=== PATIENT | male | born 2005 | race Two or more races ===

== ENCOUNTER 2025-04-01 16:45 | Emergency (ER) | payer MEDICAID, SELFPAY ==
[2025-04-01 16:46] VITALS: BMI 22.1
--- NOTE | 2025-04-01 17:39 | PD.EDRME ---
Rapid Medical Screening Exam RME Arrival date/time: 04/01/25 16:45 This is a 19-year-old male that comes in with complaints of fever, nausea, vomiting, diarrhea that started today. Patient also complaining of right sided mid abdominal pain. Patient denies any past medical history. I have greeted and performed a focused initial assessment of this patient. Initial appropriate labs ordered at this time. A comprehensive ED assessment and evaluation of the patient and analysis of all test and completion of medical decision making process will be conducted by additional ED provider. Chief Complaint: Abdominal Pain Time Seen by Provider: 04/01/25 17:02
[2025-04-01 17:44] VITALS: BP 128/77; PULSE 72; RESP 16; TEMP 36.7; O2SAT 98
[2025-04-01] MEDS: ONDANSETRON ODT 4 MG TABRAP PO (17:47)
[2025-04-01] MEDS: ACETAMINOPHEN 500 MG TABLET 1000 MG PO (17:47)
[2025-04-01 18:35] LABS: Basophils % (Auto) 0 % (0-2.5); Eosinophils % (Auto) 0 % (0-10); Hematocrit 45.4 % (41.0-53.0); Hemoglobin 16.1 g/dL (13.5-16.0); Immature Granulocytes % (Auto) 0 % (0-0); Immature Granulocytes Auto 0.04 Thou/mm3 (0.00-0.00); Lymphocytes # (Auto) 0.5 Thou/mm3 (1.0-5.0); Lymphocytes % (Auto) 4 % (10-50); Mean Corpuscular HGB Conc 35.5 g/dl (31.0-37.0); Mean Corpuscular Hemoglobin 30.6 pg (25.0-35.0); Mean Corpuscular Volume 86 fL (80-100); Monocytes # (Auto) 0.3 Thou/mm3 (0.0-0.8); Monocytes % (Auto) 3 % (0-12); Neutrophils % (Auto) 93 % (37-80); Nucleated Red Blood Cell % 0 /100 WBC (0); Platelet Count 211 Thou/mm3 (140-440); RDW Standard Deviation 38.7 fL (35.1-43.9); Red Blood Count 5.27 Miln/mm3 (4.50-5.90); White Blood Count 11.9 Thou/mm3 (4.5-11.0)
[2025-04-01 18:45] LABS: Alanine Aminotransferase 18 U/L (10-49); Albumin, Serum 5.1 gm/dL (3.5-5.0); Albumin/Globulin Ratio 2.1 (1.2-2.2); Alkaline Phosphatase 65 U/L (46-116); Anion Gap 10 (7-16); Aspartate Amino Transferase 14 U/L (0-34); BUN/Creatinine Ratio 8 Ratio (12-20); Bilirubin,Total 1.4 mg/dL (0.3-1.2); Blood Urea Nitrogen 9 mg/dL (9-23); Calcium 9.5 mg/dL (8.3-10.6); Calcium (Corrected) 9.5 mg/dL (8.5-10.1); Carbon Dioxide 27.4 mMol/L (20.0-31.0); Chloride 106 mMol/L (98-107); Creatinine (Component) 1.1 mg/dL (0.6-1.3); Estimated Creatinine Clearance 103.9 mL/min (>60); Globulin 2.4 gm/dL (2.3-3.5); Glucose 117 mg/dL (74-106); Lipase 28 U/L (12-53); Osmolality,Calculated 284 (275-295); Sodium 143 mMol/L (136-145); Total Protein 7.5 gm/dL (5.7-8.2); eGFR > 60 See Note
--- NOTE | 2025-04-01 18:49 | EDNOTE_ITS ---
ED Abdominal Pain RME/HPI General Chief Complaint: Abdominal Pain Stated complaint: I HAVE FOOD POISONING Time seen by provider: 04/01/25 17:02 Arrival date/time: 04/01/25 16:45 RME / HPI RME / HPI narrative: 04/01/25 16:45 This is a 19-year-old male that comes in with complaints of fever, nausea, vomiting, diarrhea that started today. Patient also complaining of right sided mid abdominal pain. Patient denies any past medical history. I have greeted and performed a focused initial assessment of this patient. Initial appropriate labs ordered at this time. A comprehensive ED assessment and evaluation of the patient and analysis of all test and completion of medical decision making process will be conducted by additional ED provider. This section includes all my notes and documentations, including HPI, PE, and ED course. Mina Shaw MD HPI: 19 y/o male with Hx of Marijuana use presents c/o vomiting, diarrhea, and abdominal pain x approximately 12 hours. Denies rectal bleeding, vomiting blood or coffee ground emesis. Reports abdominal surgery as a child, but does not recall if appendix or gall bladder were removed. Abdominal pain started after vomiting. No other complaints. ROS: All negative except as documented in HPI. Physical Exam: General: Alert and oriented. No acute distress when remaining still. Eyes: Conjunctivae and lids clear. ENT: No nasal congestion. Neck: Supple. Heart: RRR. Lungs: No respiratory distress. Good air movement. No rhonchi, wheezing, rales. Abdomen: Soft, mild epigastric tenderness. Normal bowel sounds. No distension. No rebound or guarding. Back: No CVA tenderness. Skin: Warm and dry. Neuro: Alert and oriented X 3. I reviewed all diagnostic test results: My interpretation of the Abdomen x-ray is NAD. My review of the Gall Bladder US report is: NAD. Blood tests and urine tests unremarkable. Influenza: Negative. At this point, diagnoses include: Viral gastroenteritis. Treatment here included: Zofran 4mg, Tylenol 500 mg. Recommended supportive care. Based on my best medical judgment, made decision no further evaluation or treatment indicated at this time. Patient understands and agrees to the discharge instructions customized and printed, see below. Discharge Instructions from Dr. Shaw: 1. After evaluation, you have stomach flu.? See attached handout on gastroenteritis. 2. This is caused by virus germs.? And we do not have good medications to kill the virus germs.? But your immune system will fight it off. 3. Your job is to stay hydrated.? Zofran for nausea/vomiting.? Increase oral fluid and maintain clear urine.? If dark or yellow, increase oral fluid. 4. Do not take any medications to stop your diarrhea.? But try to replenish the fluid and electrolytes you are losing. 5. Some good choices are water (but not only water because it will cause electrolyte abnormalities), sports drinks like Gatorade (with less sugar content), coconut water, chicken stock, and other fluid with electrolytes (like Pedialyte). 6. See your private doctor on 03/31/2025 if not completely better. 7. Seek immediate medical care with worsening or with any concerns. Mina Shaw MD Related Data Previous Rx's ?Medication ?Instructions ?Recorded ciprofloxacin HCl 500 mg tablet 500 mg PO Q12H #20 tab s 08/24/20 (Cipro) ondansetron 4 mg disintegrating 4 mg PO TID PRN nausea and 04/01/25 tablet vomiting 30 days #10 tabs Allergies Allergy/AdvReac Type Severity Reaction Status Date / Time No Known Allergies Allergy Verified 04/01/25 16:49 Review of Systems Review of Systems Systems Reviewed: All systems reviewed, normal except as documented Past Medical History Social History SMOKING STATUS: Current some day smoker SUBSTANCE USE: marijuana ED Exam Narrative Physical exam: Refer to HPI above Course Quality Measures none Orders Category Date Time Status Bedside Influenza A&B Antigen Test NOW Care 04/01/25 17:39 Completed KUB [XR abdomen 1V] Stat Exams 04/01/25 19:10 Completed US gall bladder Stat Exams 04/01/25 19:10 Completed Amylase Stat Lab 04/01/25 17:56 Completed CBC Stat Lab 04/01/25 17:56 Completed Comprehensive Metabolic Panel Stat Lab 04/01/25 17:56 Completed Drug Screen,Urine Stat Lab 04/01/25 18:27 Completed Lipase Stat Lab 04/01/25 17:56 Completed Magnesium Stat Lab 04/01/25 17:56 Completed Urinalysis, C/S if Indicated Stat Lab 04/01/25 18:27 Completed Acetaminophen Tab [Tylenol ES Tab] Med 04/01/25 17:38 Discontinued 1,000 mg PO X1 ONE Ondansetron Odt [Zofran Odt] Med 04/01/25 17:38 Discontinued 4 mg PO X1 ONE Vital Signs Vital signs: Vital Signs Temperature 98.1 F 04/01/25 17:44 Pulse Rate 72 04/01/25 17:44 Respiratory Rate 16 04/01/25 17:44 Blood Pressure 128/77 04/01/25 17:44 Pulse Oximetry (%) 98 04/01/25 17:44 Oxygen Delivery Method Room Air 04/01/25 17:44 Abdominal Pain MDM MDM Narrative MDM Narrative:: Scribe Attestation: I, Marley Watson, am scribing for and in the presence of Dr. Shaw. Provider Notation: Although this document has been carefully reviewed, there may still be some phonetic and other typographical errors.? These errors are purely grammatical due to imperfections in the software program and should not be construed in any way to? compromise the substance of the patient's medical care during this visit. 19 y/o male with Hx of Marijuana use presents c/o vomiting, diarrhea, and abdominal pain x approximately 12 hours. Denies rectal bleeding, vomiting blood or coffee ground emesis. Reports abdominal surgery as a child, but does not recall if appendix or gall bladder were removed. Abdominal pain started after vomiting. No other complaints. Patient data External records reviewed:: [facility] previous records (No recent ED records available for review.) Clinical information provided by:: patient Social determinants that could affect healthcare access:: substance use (Marijuana) Patient has the following chronic illnesses:: None reported How is presenting disease/condition affected by chronic disease/condition?: no chronic disease Evaluation data The following diagnostics were reviewed and interpreted by me:: lab results and radiology exam(s) Lab and/or radiology exams considered but not ordered:: None Interpretation Summary: I reviewed all diagnostic test results: My interpretation of the Abdomen x-ray is NAD. My review of the Gall Bladder US report is: NAD. Blood tests and urine tests unremarkable. Influenza: Negative. Medications / Prescriptions Medications or Prescriptions considered but not ordered:: None Medication administrations:: Medication Administration History Discontinued Medications Acetaminophen (Acetaminophen 500 Mg Tablet) 1,000 mg PO X1 ONE Stop: 04/01/25 17:39 Last Admin: 04/01/25 17:47 Dose: 1,000 mg Documented By: SOCO Ondansetron HCl (Ondansetron Odt 4 Mg Tabrap) 4 mg PO X1 ONE; Protocol Stop: 04/01/25 17:39 Last Admin: 04/01/25 17:47 Dose: 4 mg Documented By: SOCO Zofran 4mg, Tylenol 500 mg. Consultations Consultation(s) initiated? (list below): No Diagnosis Differential diagnosis abdominal pain: abdominal pain, acute appendicitis, calculus of kidney, constipation, diverticulitis, gastroenteritis, pancreatitis and small bowel obstruction Most likely diagnosis given after review of the tests above:: Stomach flu Admission Indicated Admission indicated?: not indicated Explain why admission is indicated or not indicated:: With no severe illness, there was no indication for admission. Admission Request Was there a request for admission?: No Disposition Plan Disposition Plan: Discharge Discharge Attestation Discharge Attestation: The patient and all family members were given an opportunity to ask questions and understood the discharge instructions. Discharge instructions specifically effects, indications for sooner follow up or return to the emergency department, and the expected course of current diagnosis. Patient condition: Stable Discharge Plan Plan Patient Disposition: HOME (Self Care) Prescriptions/Referrals Prescriptions/Med Rec: New ondansetron 4 mg tablet,disintegrating 4 mg PO TID PRN (Reason: nausea and vomiting) 30 Days Qty: 10 0RF No Action ciprofloxacin HCl [Cipro] 500 mg tablet 500 mg PO Q12H Qty: 20 0RF Referrals: No Primary/Family,Physician [Primary Care Provider] - In 1 week Problem List Clinical Impression: Stomach flu Patient/Caregiver Discharge Instructions Discharge Activity: activity as tolerated Education Materials: ED Gastroenteritis, Viral (Adult) Additional Instructions: Discharge Instructions from Dr. Shaw: 1. After evaluation, you have stomach flu.? See attached handout on gastroenteritis. 2. This is caused by virus germs.? And we do not have good medications to kill the virus germs.? But your immune system will fight it off. 3. Your job is to stay hydrated.? Zofran for nausea/vomiting.? Increase oral fluid and maintain clear urine.? If dark or yellow, increase oral fluid. 4. Do not take any medications to stop your diarrhea.? But try to replenish the fluid and electrolytes you are losing. 5. Some good choices are water (but not only water because it will cause electrolyte abnormalities), sports drinks like Gatorade (with less sugar content), coconut water, chicken stock, and other fluid with electrolytes (like Pedialyte). 6. See your private doctor on 03/31/2025 if not completely better. 7. Seek immediate medical care with worsening or with any concerns. Print Language: Egyptian Stand Alone Forms: [employer] Award Info., Patient Portal Info Letter
[2025-04-01 18:51] LABS: Collection Type, Urine Voided
[2025-04-01 18:57] LABS: Bilirubin,Urine Negative (Negative); Blood,Urine Negative (Negative); Clarity,Urine Clear (Clear/Hazy); Color,Urine Yellow (Lt Yel-Yel); Culture Indicated,Urine Not Indicated; Glucose, Urine Negative (Negative); Ketones,Urine 1+ (Negative); Leukocyte Esterase,Urine Negative (Negative); Nitrite,Urine Negative (Negative); PH,Urine 7.5 (5.0-7.0); Protein,Urine Trace (Neg - Trace); RBC,Urine 5 /hpf (0-3); Specific Gravity,Urine 1.031 (1.001-1.035); Squamous Epithelial Cell,Urine < 1 /hpf (0-5); Urobilinogen,Urine Negative mg/dL (0.0-1.0); WBC,Urine 1 /hpf (0-5)
[2025-04-01 19:05] LABS: Amphetamine/Methamp Scrn,U Negative (Negative); Barbiturate Screen,Urine Negative (Negative); Benzodiazepines Screen,Urine Negative (Negative); Benzoylecgonine Screen, Ur Negative (Negative); Fentanyl Screen,Urine Negative (Negative); Opiate Screen,Urine Negative (Negative); THC Screen,Urine Positive (Negative)
--- NOTE | 2025-04-01 19:10 | XR_ITS ---
Examination: Abdomen sonogram, Limited Date and time of exam: April 01, 2025 2115 hours INDICATIONS: Right upper abdominal pain with nausea vomiting diarrhea today Technique: Real-time cuadra scale transabdominal sonographic images of the upper abdomen obtained. Findings: Normal gallbladder Normal common bile duct 0.3 cm Pancreatic head 1.5 cm Liver 15.1 cm smooth contour no focal liver lesions Normal hepatopedal portal venous flow Patent IVC IMPRESSION: Normal gallbladder Normal common bile duct
--- NOTE | 2025-04-01 19:10 | XR_ITS ---
Examination: Abdomen AP single view Technique: AP portable supine abdomen, single view Exam date and time: April 01, 2025 at 1955 hours INDICATIONS: Abdominal pain today. FINDINGS: Normal bowel gas pattern. No free air Intact osseous structures IMPRESSION: Normal bowel gas pattern
[2025-04-01 19:34] LABS: Amylase 33 U/L (30-118); Magnesium 1.7 mg/dL (1.6-2.6)
== END 2025-04-01 21:52 | disposition home or self-care (01) ==
PROVIDERS: Nurse Practitioner Family; Emergency Provider Emergency Medicine
DX: A08.4 Viral intestinal infection, unspecified (principal)
CPT/HCPCS: 36415; 74018; 76705; 80053; 80307; 81001; 82150; 83690; 83735; 85025; 87400; 99284; Q0162; A9270

== ENCOUNTER 2025-08-10 17:59 | Emergency (ER) | payer MEDICAID, SELFPAY ==
[2025-08-10 18:18] VITALS: BP 125/79; PULSE 82; RESP 18; TEMP 36.6; O2SAT 98; BMI 21.8
--- NOTE | 2025-08-10 18:30 | EDNOTE_ITS ---
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 This been ongoing for the last 1 month. Associated with itchiness. Denies any shortness of breath. Denies any difficulty swallowing. On my initial evaluation patient told me that the rash is totally gone. Related Data Previous Rx's ?Medication ?Instructions ?Recorded ciprofloxacin HCl 500 mg tablet 500 mg PO Q12H #20 tab s 08/24/20 (Cipro) diphenhydramine HCl 25 mg capsule 25 mg PO TID PRN all ergic reaction 08/10/25 (Benadryl) #30 caps prednisone 50 mg tablet 50 mg PO QDAY #7 tabs Allergies Allergy/AdvReac Type Severity Reaction Status Date / Time No Known Allergies Allergy Verified 08/10/25 18:02 Review of Systems Review of Systems Narrative Review of Systems: Review of system reviewed and within normal limits except mentioned in HPI ED Exam Narrative Physical exam: VITAL SIGNS: Reviewed. GENERAL APPEARANCE: Alert and interactive, follows commands, no acute distress, HEAD AND FACE: Non-traumatic. ENT: PERRL, pink conjunctivitis, eyelid no trauma, Mucous membrane moist. NECK: Supple, nontender, no nuchal rigidity. CHEST: No tenderness, no crepitus, no paradoxical movement, no retractions. LUNGS: Clear, well ventilated, symmetric, no rales, no wheezing, no ronchi, no stridor, good breath sounds bilaterally. HEART: Regular rate, regular rhythm, no murmur, no gallops. ABDOMEN: Soft, positive bowel sounds, nondistended, no guarding, nontender, no rebound, no masses, RECTAL: Deferred. GENITAL: Deferred. NEUROLOGICAL: Gross motor function intact sensory function intact, Appropriate for age. MUSCULOSKELETAL: low back nontender, full range of motion. EXTREMITIES: Nontender, full range of motion. SKIN: Color pink, dry, no rash, no lacerations, no abrasions, no contusions. LYMPHATICS: Deferred. 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 This been ongoing for the last 1 month. Associated with itchiness. Denies any shortness of breath. Denies any difficulty swallowing. On my initial evaluation patient told me that the rash is totally gone. Currently patient is not having any rashes. Patient was advised to change the type of gloves he is using. He is probably having allergic reaction due to the use of gloves. Patient data External records reviewed:: None Clinical information provided by:: patient Social determinants that could affect healthcare access:: none Patient has the following chronic illnesses:: None How is presenting disease/condition affected by chronic disease/condition?: no chronic disease Evaluation data The following diagnostics were reviewed and interpreted by me:: lab results Lab and/or radiology exams considered but not ordered:: None Interpretation Summary: None Medications / Prescriptions Medications or Prescriptions considered but not ordered:: None Medication administrations:: None Consultations Consultation(s) initiated? (list below): No Diagnosis Skin/Abscess Differential Diagnosis: viral exanthem, urticaria and contact dermatitis Most likely diagnosis given after review of the tests above:: Rash Admission Indicated Admission indicated?: not indicated Admission Request Was there a request for admission?: No Disposition Plan Disposition Plan: Discharge Discharge Attestation Discharge Attestation: The patient was given an opportunity to ask questions and understood the discharge instructions. Discharge instructions specifically effects, indications for sooner follow up or return to the emergency department, and the expected course of current diagnosis. Patient condition: Stable Discharge Plan Plan Patient Disposition: HOME (Self Care) Discharge Disposition comment: Stable Prescriptions/Referrals Prescriptions/Med Rec: New diphenhydramine HCl [Benadryl] 25 mg capsule 25 mg PO TID PRN (Reason: allergic reaction) Qty: 30 0RF prednisone 50 mg tablet 50 mg PO QDAY Qty: 7 0RF No Action ciprofloxacin HCl [Cipro] 500 mg tablet 500 mg PO Q12H Qty: 20 0RF Problem List Clinical Impression: Rash, Allergic to latex Patient/Caregiver Discharge Instructions Discharge Activity: activity as tolerated Education Materials: Living with Latex Allergies Additional Instructions: Thank you for the opportunity for serving you today. You are stable for discharged . You are advised to: Follow-up with your PCP in 1 to 2 days Return to ED for worsening of symptoms Increase oral fluids Take medication as prescribed As your PCP to refer you to an Supervisor [employer] Print Language: South Korean Stand Alone Forms: [employer]in Award Info., Patient Portal Info Letter PA/RAVIN Supervising Physician LOPEZ/RAVIN Supervising Physician: MD Teddy
== END 2025-08-10 19:05 | disposition home or self-care (01) ==
LOC: SERX 18:41
PROVIDERS: Emergency Provider Emergency Medicine
DX: L50.9 Urticaria, unspecified (principal)
CPT/HCPCS: 99281

== ENCOUNTER 2025-09-30 14:10 | Emergency (ER) | payer MEDICAID, SELFPAY ==
[2025-09-30 14:16] VITALS: PULSE 88; RESP 18; O2SAT 99; BMI 21.5
[2025-09-30 14:23] VITALS: BP 136/70; PULSE 100; RESP 20; TEMP 36.4; O2SAT 98
--- NOTE | 2025-09-30 14:35 | XR_ITS ---
Examination: Abdomen sonogram, Limited Date and time of exam: September 30, 2025, 1529 hours INDICATIONS: Epigastric pain nausea vomiting today Technique: Real-time cuadra scale transabdominal sonographic images of the upper abdomen obtained. Findings: Normal gallbladder Normal common bile duct 0.3 cm Pancreatic head 2.6 cm Liver 13.5 cm smooth contour no focal liver lesions Normal hepatopetal portal venous flow Patent IVC IMPRESSION: Normal gallbladder Normal common bile duct
--- NOTE | 2025-09-30 14:36 | XR_ITS ---
EXAMINATION: AP chest single view TECHNIQUE: AP portable upright chest single view Date and time: September 30, 2025, 1541 hours INDICATIONS: Epigastric pain chest pain beginning today. FINDINGS: Normal heart size Lungs are clear. Intact osseous structures IMPRESSION: No active disease
--- NOTE | 2025-09-30 14:37 | PD.EDSYNC ---
ED Syncope RME/HPI General Chief Complaint: Syncope / Near Syncope Stated Complaint: NEAR SYNCOPE Time Seen by Provider: 09/30/25 14:21 Arrival date/time: 09/30/25 14:10 20-year-old male patient with no past medical history, came in for evaluation regarding near-syncope. Incident happened few minutes prior to ER visit as patient developed sudden onset of dizziness, and almost passed out, patient also complained of epigastric pain, vomiting, shaky, diaphoretic, severity moderate. Denies any chest pain. Denies any cough denies any headache denies any neck pain. Denies any similar episode in the past no medication was taken prior to ER visit. Related Data Previous Rx's ?Medication ?Instructions ?Recorded ciprofloxacin HCl 500 mg tablet 500 mg PO Q12H #20 tabs 08/24/20 (Cipro) diphenhydramine HCl 25 mg capsule 25 mg PO TID PRN allergic reaction 08/10/25 (Benadryl) #30 caps prednisone 50 mg tablet 50 mg PO QDAY #7 tabs 08/10/25 famotidine 20 mg tablet (Pepcid) 20 mg PO BID #20 tabs 09/30/25 ondansetron HCl 4 mg tablet 4 mg PO Q8H PRN nausea and 09/30/25 vomiting 5 days #20 tabs Allergies Allergy/AdvReac Type Severity Reaction Status Date / Time No Known Allergies Allergy Verified 08/10/25 18:02 Review of Systems Review of Systems Narrative Review of Systems: Review of system reviewed and within normal limits except mentioned in HPI ED Exam Narrative Physical exam: VITAL SIGNS: Reviewed. GENERAL APPEARANCE: Alert and interactive, follows commands, no acute distress, HEAD AND FACE: Non-traumatic. ENT: PERRL, pink conjunctivitis, eyelid no trauma, Mucous membrane moist. NECK: Supple, nontender, no nuchal rigidity. CHEST: No tenderness, no crepitus, no paradoxical movement, no retractions. LUNGS: Clear, well ventilated, symmetric, no rales, no wheezing, no ronchi, no stridor, good breath sounds bilaterally. HEART: Regular rate, regular rhythm, no murmur, no gallops. ABDOMEN: Soft, positive bowel sounds, nondistended, no guarding, epigastric pain, no rebound, no masses, RECTAL: Deferred. GENITAL: Deferred. NEUROLOGICAL: Gross motor function intact sensory function intact, Appropriate for age. MUSCULOSKELETAL: low back nontender, full range of motion. EXTREMITIES: Nontender, full range of motion. SKIN: Color pink, dry, no rash, no lacerations, no abrasions, no contusions. LYMPHATICS: Deferred. Course Quality Measures none Orders Category Date Time Status Bedside Influenza A&B Antigen Test NOW Care 09/30/25 14:37 Completed US gall bladder Stat Exams 09/30/25 14:35 Completed XR chest 1V Stat Exams 09/30/25 14:36 Completed CBC Stat Lab 09/30/25 15:18 Completed Comprehensive Metabolic Panel Stat Lab 09/30/25 15:18 Completed Lipase Stat Lab 09/30/25 15:18 Completed Partial Thromboplastin Time Stat Lab 09/30/25 15:18 Completed Urinalysis, C/S if Indicated Stat Lab 09/30/25 17:17 Completed Acetaminophen Tab [Tylenol ES Tab] Med 09/30/25 14:35 Discontinued 1,000 mg PO X1 ONE Ondansetron Odt [Zofran Odt] Med 09/30/25 14:35 Discontinued 4 mg PO X1 ONE Ringers Lactated 1000 ml [Lactated Ringers] 1,000 ml Med 09/30/25 14:36 Discontinued IV 999 mls/hr Vital Signs Vital signs: Vital Signs Temperature 97.5 F 09/30/25 14:23 Pulse Rate 100 09/30/25 14:23 Respiratory Rate 20 09/30/25 14:23 Blood Pressure 136/70 H 09/30/25 14:23 Pulse Oximetry (%) 98 09/30/25 14:23 Oxygen Delivery Method Room Air 09/30/25 14:23 Syncope MDM Narrative MDM Narrative:: Patient's laboratory workup today all came back normal urinalysis no UTI, ultrasound of the gallbladder came back normal chest x-ray also normal. Patient received Tylenol, Zofran, IV fluids, with complete resolution of symptoms patient told me that she is ready to eat she is hungry. His blood sugar was noted to be 175. Stable for discharge home Patient data External records reviewed:: None Clinical information provided by:: patient Social determinants that could affect healthcare access:: none Patient has the following chronic illnesses:: None How is presenting disease/condition affected by chronic disease/condition?: no chronic disease Evaluation data The following diagnostics were reviewed and interpreted by me:: lab results and radiology exam(s) Lab and/or radiology exams considered but not ordered:: None Interpretation Summary: None Medications / Prescriptions Medications or Prescriptions considered but not ordered:: none Medication administrations:: Medication Administration History Discontinued Medications Acetaminophen (Acetaminophen 500 Mg Tablet) 1,000 mg PO X1 ONE Stop: 09/30/25 14:36 Last Admin: 09/30/25 15:48 Dose: 1,000 mg Documented By: DO Lactated Ringer's (Lactated Ringers) 1,000 mls @ 999 mls/hr IV .Q1H1M ONE Stop: 09/30/25 15:36 Last Infusion: 09/30/25 17:00 Dose: Infused Documented By: Admin: 09/30/25 15:50 Dose: 999 mls/hr Documented By: DO Ondansetron HCl (Ondansetron Odt 4 Mg Tabrap) 4 mg PO X1 ONE; Protocol Stop: 09/30/25 14:36 Last Admin: 09/30/25 15:49 Dose: 4 mg Documented By: DO See above Consultations Consultation(s) initiated? (list below): No Diagnosis Syncope Differential Diagnosis: dehydration and other Most likely diagnosis given after review of the tests above:: Epigastric pain, gastritis Admission Indicated Admission indicated?: not indicated Admission Request Was there a request for admission?: No Disposition Plan Disposition Plan: Discharge Discharge Attestation Discharge Attestation: The patient and all family members were given an opportunity to ask questions and understood the discharge instructions. Discharge instructions specifically effects, indications for sooner follow up or return to the emergency department, and the expected course of current diagnosis. Patient condition: Stable Discharge Plan Plan Patient Disposition: HOME (Self Care) Discharge Disposition comment: stable Prescriptions/Referrals Prescriptions/Med Rec: New famotidine [Pepcid] 20 mg tablet 20 mg PO BID Qty: 20 0RF ondansetron HCl 4 mg tablet 4 mg PO Q8H PRN (Reason: nausea and vomiting) 5 Days Qty: 20 0RF No Action ciprofloxacin HCl [Cipro] 500 mg tablet 500 mg PO Q12H Qty: 20 0RF diphenhydramine HCl [Benadryl] 25 mg capsule 25 mg PO TID PRN (Reason: allergic reaction) Qty: 30 0RF prednisone 50 mg tablet 50 mg PO QDAY Qty: 7 0RF Referrals: No Primary/Family,Physician [Primary Care Provider] - In 1 week Problem List Clinical Impression: Epigastric abdominal pain, Gastritis Patient/Caregiver Discharge Instructions Discharge Activity: activity as tolerated Education Materials: Treating Gastritis Additional Instructions: Thank you for the opportunity for serving you today. You are stable for discharged . You are advised to: Follow-up with your PCP in 1 to 2 days Return to ED for worsening of symptoms Increase oral fluids Take medication as prescribed Please eat 3 meals a day with snacks in between Print Language: Andorran Stand Alone Forms: [employer]in Award Info., Patient Portal Info Letter PA/[employer] SPECIALIST Supervising Physician PA/[employer] SPECIALIST Supervising Physician: MD la nena
[2025-09-30 15:38] LABS: Basophils # (Auto) 0.1 Thou/mm3 (0.0-0.2); Basophils % (Auto) 1 % (0-2.5); Eosinophils # (Auto) 0.0 Thou/mm3 (0.0-0.5); Eosinophils % (Auto) 0 % (0-10); Hematocrit 40.3 % (41.0-53.0); Hemoglobin 14.4 g/dL (13.5-16.0); Immature Granulocytes Auto 0.04 Thou/mm3 (0.00-0.00); Lymphocytes # (Auto) 0.9 Thou/mm3 (1.0-4.8); Lymphocytes % (Auto) 8 % (10-50); Mean Corpuscular HGB Conc 35.7 g/dl (31.0-37.0); Mean Corpuscular Hemoglobin 30.9 pg (25.0-35.0); Mean Corpuscular Volume 87 fL (80-100); Monocytes # (Auto) 0.4 Thou/mm3 (0.0-0.8); Monocytes % (Auto) 4 % (0-12); Neutrophils # (Auto) 9.6 Thou/mm3 (1.8-7.7); Neutrophils % (Auto) 87 % (37-80); Nucleated Red Blood Cell # 0.00 Thou/mm3 (0.00-0.00); Nucleated Red Blood Cell % 0 /100 WBC (0); Platelet Count 237 Thou/mm3 (140-440); RDW Standard Deviation 40.1 fL (35.1-43.9); Red Blood Count 4.66 Miln/mm3 (4.50-5.90); White Blood Count 11.0 Thou/mm3 (4.5-11.0)
[2025-09-30 15:48] VITALS: TEMP 36.4
[2025-09-30] MEDS: ACETAMINOPHEN 500 MG TABLET 1000 MG PO (15:48)
[2025-09-30] MEDS: ONDANSETRON ODT 4 MG TABRAP PO (15:49)
[2025-09-30] MEDS: RINGERS LACTATED 1000 ML 1,000 ML 999 ML IV (15:50)
[2025-09-30 15:55] LABS: Partial Thromboplastin Time 24.8 Seconds (22.0-36.0)
[2025-09-30 15:57] LABS: Alanine Aminotransferase 23 U/L (10-49); Albumin, Serum 4.7 gm/dL (3.5-5.0); Albumin/Globulin Ratio 1.8 (1.2-2.2); Alkaline Phosphatase 62 U/L (46-116); Anion Gap 16 (7-16); Aspartate Amino Transferase 20 U/L (0-34); BUN/Creatinine Ratio 13 Ratio (12-20); Bilirubin,Total 0.7 mg/dL (0.3-1.2); Blood Urea Nitrogen 14 mg/dL (9-23); Calcium 9.2 mg/dL (8.3-10.6); Calcium (Corrected) 9.2 mg/dL (8.5-10.1); Carbon Dioxide 20.7 mMol/L (20.0-31.0); Chloride 106 mMol/L (98-107); Creatinine (Component) 1.1 mg/dL (0.6-1.3); Estimated Creatinine Clearance 103.1 mL/min (>60); Globulin 2.6 gm/dL (2.3-3.5); Glucose 175 mg/dL (74-106); Lipase 24 U/L (12-53); Osmolality,Calculated 289 (275-295); Potassium 3.5 mMol/L (3.4-5.1); Sodium 143 mMol/L (136-145); Total Protein 7.3 gm/dL (5.7-8.2); eGFR > 60 See Note
[2025-09-30 17:24] LABS: Collection Type, Urine Clean Catch; Squamous Epithelial Cell,Urine 0 /hpf (0-5)
[2025-09-30 17:32] LABS: Bilirubin,Urine Negative (Negative); Blood,Urine Negative (Negative); Clarity,Urine Clear (Clear/Hazy); Color,Urine Yellow (Lt Yel-Yel); Culture Indicated,Urine Not Indicated; Glucose, Urine 3+ (Negative); Ketones,Urine 3+ (Negative); Leukocyte Esterase,Urine Negative (Negative); Nitrite,Urine Negative (Negative); PH,Urine 5.5 (5.0-7.0); Protein,Urine Trace (Neg - Trace); RBC,Urine 2 /hpf (0-3); Specific Gravity,Urine 1.025 (1.001-1.035); Urobilinogen,Urine Negative mg/dL (0.0-1.0); WBC,Urine 1 /hpf (0-5)
[2025-09-30 17:43] VITALS: BP 108/45; PULSE 75; RESP 18; TEMP 36.8; O2SAT 99
--- NOTE | 2025-09-30 19:08 | PC.NURSE ---
Patient report received from Yasmin PINO, patient is awake and alert, he is sitting on the side of the bed putting his shoes on. Patient has been reminded that he cannot be safely discharged unless someone comes and picks him up or his alcohol levels are indicators of soberness. Patient verbalizes understanding of the information and he went back in bed. Bed is kept at its lowest position with wheels locked, call light is within patient's reach. Patient care assumed at this time.
[2025-09-30 19:25] VITALS: BP 124/49; PULSE 76; O2SAT 97
== END 2025-09-30 19:27 | disposition home or self-care (01) ==
PROVIDERS: Nurse Practitioner Family; Emergency Provider Emergency Medicine
DX: K29.70 Gastritis, unspecified, without bleeding (principal); R07.9 Chest pain, unspecified; R11.2 Nausea with vomiting, unspecified
CPT/HCPCS: 36415; 71045; 76705; 80053; 81001; 83690; 85025; 85730; 87502; 96360; 99284; J7120; Q0162; A9270